=== PATIENT | male | born 1995 | race Caucasian/White ===

== ENCOUNTER → 2022-07-14 | Outpatient (CLI) | payer OTHER | LOC: DX 08:55 | PROVIDERS: ATTEND Internal Medicine Gastroenterology | DX: K29.00 Acute gastritis without bleeding (principal) | CPT/HCPCS: 74240; 74250 ==

== ENCOUNTER → 2025-04-07 | Day surgery (SDC) | payer OTHER ==
[~2025-04-07] MED LIST: CARAFATE1 GM/10 ML PO; CBD GUMMY PO; CBD OIL PO; HAIR SKIN NAIL1 EACH PO; LIDOCAINE HCL 2% LOCAL INJ 5 ML SDV VIAL INJ ONE; MIDAZOLAM HCL 2 MG/2 ML VIAL ONE; OMEGA 3 1,0001 EACH PO; PANTOPRAZOLE SO40 MG PO; PROPOFOL IV EMULSION 50 ML IV ONE; SERTRALINE HCL50 MG PO
[2025-04-07] MEDS: LACTATED RINGER'S 1,000 ML ONE (13:11)
[2025-04-07 16:30] VITALS: BP 110/89; PULSE 67; RESP 16; O2SAT 99
== END | disposition home or self-care (01) ==
LOC: OR 11:48
PROVIDERS: ATTEND Internal Medicine Gastroenterology
DX: K64.8 Other hemorrhoids (principal); K59.00 Constipation, unspecified; K21.00 Gastro-esophageal reflux disease with esophagitis, without bleeding; Z90.49 Acquired absence of other specified parts of digestive tract; Z79.899 Other long term (current) drug therapy; Z68.1 Body mass index [BMI] 19.9 or less, adult; Z88.5 Allergy status to narcotic agent; Z01.810 Encounter for preprocedural cardiovascular examination
CPT/HCPCS: 43239; 45378; 93005; J2003; J2250; J2704; J7121